=== PATIENT | female | born 1980 | race Caucasian/White ===

== ENCOUNTER 2020-10-04 16:18 | Emergency (ER) | payer OTHER ==
[2020-10-04 16:51] VITALS: TEMP 98.4
[2020-10-04] MEDS ORDERED: diphenhydrAMINE 50 MG/ML 1 ML VIAL IVP STA (16:55)
[2020-10-04] MEDS ORDERED: HYDROmorphone 0.5 MG/0.5 ML SYRINGE IVP STA ×2 (16:55→19:12)
[2020-10-04] MEDS ORDERED: METOCLOPRAMIDE 5 MG/ML 2 ML VIAL IVP STA (16:55)
--- NOTE | 2020-10-04 17:22 | ED ---
General Adult HPI - General Chief complaint: Headache Stated complaint: Headache/Blindness Time Seen by Provider: 10/04/20 16:38 Source: patient, EMS Mode of arrival: EMS Limitations: no limitations - History of Present Illness Initial comments: 40 year-old female patient with history significant for chiari malformation and pseudotumor cerebri presents to the emergency department for evaluation of headache and visual disturbance. Patient states that headache started 5 days ago. States that pain is at the base of her skull and behind her eyes. States earlier today she lost vision for about 15 minutes, states it went completely black and she was unable to see anything. States this is a new symptom for her. She reports occasional blurred vision. Nausea, light, and sound sensitivity. Denies any fever or chills. Denies any recent head injury. States she took her home medications which include lasix and toradol without difficulty. She was also given toradol in ambulance without relief. Does see Dr. Marinelli for neurology. Patient denies any recent rash, cough, shortness of breath, chest pain, abdominal pain, nausea, vomiting, diarrhea, constipation, back pain, hematuria, dysuria, urinary urgency, urinary frequency, or any other complaints. - Related Data Home Medications Medication Instructions Recorded Confirmed Cetirizine HCl [Zyrtec] 10 mg PO DAILY 10/04/20 10/04/20 Cyclobenzaprine [Flexeril] 10 mg PO BID 10/04/20 10/04/20 DULoxetine HCL [Cymbalta] 30 mg PO HS 10/04/20 10/04/20 Ergocalciferol (Vitamin D2) 1,250 mcg PO Q7D 10/04/20 10/04/20 [Drisdol (50,000 Iu)] Furosemide [Lasix] 20 mg PO BID 10/04/20 10/04/20 Hydrocortisone Cream 1 applic TOPICAL BID 10/04/20 10/04/20 [Hydrocortisone 2.5% Cream] Ketorolac [Toradol] 10 mg PO Q6HR PRN 10/04/20 10/04/20 Labetalol HCl 100 mg PO BID 10/04/20 10/04/20 Levothyroxine Sodium [Synthroid] 150 mcg PO DAILY 10/04/20 10/04/20 Ondansetron Odt [Zofran Odt] 4 mg PO BID PRN 10/04/20 10/04/20 Potassium Chloride ER [K-Dur 10] 10 meq PO DAILY 10/04/20 10/04/20 Triamcinolone 0.1% Cream [Kenalog 1 applic TOPICAL DAILY 10/04/20 10/04/20 0.1% Cream] traZODone HCL [Desyrel] 50 mg PO HS 10/04/20 10/04/20 Allergies Allergy/AdvReac Type Severity Reaction Status Date / Time acetaminophen Allergy Unknown Verified 10/04/20 17:25 [From Darvocet-N] acetazolamide Allergy Unknown Verified 10/04/20 17:25 [From Diamox Sequels] lisinopril Allergy Unknown Verified 10/04/20 17:25 propoxyphene Allergy Unknown Verified 10/04/20 17:25 [From Darvocet-N] vancomycin Allergy Unknown Verified 10/04/20 17:25 Review of Systems ROS Statement: Those systems with pertinent positive or pertinent negative responses have been documented in the HPI. ROS Other: All systems not noted in ROS Statement are negative. Past Medical History Past Medical History: Cancer, Thyroid Disorder Additional Past Medical History / Comment(s): Uterine CA, HTN, psuedo cerebri tumor, endometriosis, chiari malformation History of Any Multi-Drug Resistant Organisms: None Reported Past Surgical History: Hysterectomy Additional Past Surgical History / Comment(s): thyroidectomy, brain surgery, Past Psychological History: No Psychological Hx Reported Smoking Status: Never smoker Past Alcohol Use History: None Reported Past Drug Use History: None Reported General Exam Limitations: no limitations General appearance: alert, in no apparent distress, other (This is a well- developed, well-nourished adult female patient in no acute distress. Vital signs upon presentation are temperature 98.4F, pulse 85, respirations 18, blood pressure 132/79, pulse ox 97% on room air.) Eye exam: Present: normal appearance, PERRL, EOMI. Absent: scleral icterus, conjunctival injection, nystagmus, periorbital swelling ENT exam: Present: normal exam, normal oropharynx, mucous membranes moist Respiratory exam: Present: normal lung sounds bilaterally. Absent: respiratory distress, wheezes, rales, rhonchi, stridor Cardiovascular Exam: Present: regular rate, normal rhythm, normal heart sounds. Absent: systolic murmur, diastolic murmur, rubs, gallop, clicks GI/Abdominal exam: Present: soft, normal bowel sounds. Absent: distended, tenderness, guarding, rebound, rigid Neurological exam: Present: alert, oriented X3, CN II-XII intact Expanded Speech: Present: fluid speech Cranial nerves: EOM's Intact: Normal, Nystagmus: Normal Motor strength exam: RUE: 5, LUE: 5, RLE: 5, LLE: 5 Eye Response: (4) open spontaneously Motor Response: (6) obeys commands Verbal Response: (5) oriented Missy Total: 15 Psychiatric exam: Present: normal affect, normal mood Skin exam: Present: warm, dry, intact, normal color. Absent: rash Course Vital Signs 10/04/20 16:32 Temperature 98.4 F Pulse Rate 85 Respiratory 18 Rate Blood Pressure 132/79 O2 Sat by Pulse 97 Oximetry Medical Decision Making - Medical Decision Making 40-year-old female patient presents the emergency department today for evaluation of headache visual disturbance. Physical examination is unremarkable. She is neurologically intact and no focal deficits. Reports normal vision currently. She is given IV medications for pain and migraine. Patient does report some improvement. To be given Decadron hopefully to prevent return of migraine. She is instructed to follow-up with her neurologist for further evaluation as soon as possible. Return parameters were discussed in detail. She verbalizes understanding and agrees this plan. Case discussed with my attending Dr. Justice. - Lab Data Result diagrams: 10/04/20 18:08 10/04/20 18:08 Lab Results 10/04/20 10/04/20 Range/Units 18:08 18:08 WBC 11.0 H (3.8-10.6) k/uL RBC 4.73 (3.80-5.40) m/uL Hgb 14.3 (11.4-16.0) gm/dL Hct 42.7 (34.0-46.0) % MCV 90.3 (80.0-100.0) fL MCH 30.3 (25.0-35.0) pg MCHC 33.5 (31.0-37.0) g/dL RDW 13.2 (11.5-15.5) % Plt Count 307 (150-450) k/uL MPV 6.5 Neutrophils % 69 % Lymphocytes % 21 % Monocytes % 5 % Eosinophils % 2 % Basophils % 1 % Neutrophils # 7.6 (1.3-7.7) k/uL Lymphocytes # 2.3 (1.0-4.8) k/uL Monocytes # 0.5 (0-1.0) k/uL Eosinophils # 0.2 (0-0.7) k/uL Basophils # 0.1 (0-0.2) k/uL Sodium 137 (137-145) mmol/L Potassium 4.4 (3.5-5.1) mmol/L Chloride 102 (98-107) mmol/L Carbon Dioxide 25 (22-30) mmol/L Anion Gap 10 mmol/L BUN 11 (7-17) mg/dL Creatinine 0.82 (0.52-1.04) mg/dL Est GFR (CKD-EPI)AfAm >90 (>60 ml/min/1.73 sqM) Est GFR (CKD-EPI)NonAf >90 (>60 ml/min/1.73 sqM) Glucose 96 (74-99) mg/dL Calcium 9.0 (8.4-10.2) mg/dL Magnesium 2.3 (1.6-2.3) mg/dL Total Bilirubin 0.3 (0.2-1.3) mg/dL AST 22 (14-36) U/L ALT 19 (4-34) U/L Alkaline Phosphatase 90 (38-126) U/L Total Protein 7.7 (6.3-8.2) g/dL Albumin 4.3 (3.5-5.0) g/dL Disposition Clinical Impression: Migraine headache Disposition: HOME SELF-CARE Condition: Good Instructions (If sedation given, give patient instructions): Migraine Headache (ED) Additional Instructions: Rest. Increase fluids. Follow-up through primary care physician for recheck in 1-2 days. Return to the emergency department for any new, worsening, or concerning symptoms. Is patient prescribed a controlled substance at d/c from ED?: No Referrals: Rg Brice MD [Primary Care Provider] - 1-2 days
[2020-10-04 18:17] LABS: Basophils # (A) 0.1 k/uL (0-0.2); Basophils % (A) 1 %; Eosinophils # (A) 0.2 k/uL (0-0.7); Eosinophils % (A) 2 %; HCT 42.7 % (34.0-46.0); HGB 14.3 gm/dL (11.4-16.0); Lymphocytes # (A) 2.3 k/uL (1.0-4.8); Lymphocytes % (A) 21 %; MCH 30.3 pg (25.0-35.0); MCHC 33.5 g/dL (31.0-37.0); MCV 90.3 fL (80.0-100.0); Mean Platelet Volume 6.5; Monocytes # (A) 0.5 k/uL (0-1.0); Monocytes % (A) 5 %; Neutrophils # (A) 7.6 k/uL (1.3-7.7); Neutrophils % (A) 69 %; Platelet Count 307 k/uL (150-450); RBC 4.73 m/uL (3.80-5.40); RDW 13.2 % (11.5-15.5)
[2020-10-04 18:54] LABS: ALT 19 U/L (4-34); AST 22 U/L (14-36); African American GFR (CKD) >90 (>60 ml/min/1.73 sqM); Albumin 4.3 g/dL (3.5-5.0); Alkaline Phosphatase 90 U/L (38-126); Anion Gap 10 mmol/L; Blood Urea Nitrogen 11 mg/dL (7-17); Carbon Dioxide 25 mmol/L (22-30); Chloride 102 mmol/L (98-107); Glucose 96 mg/dL (74-99); Magnesium 2.3 mg/dL (1.6-2.3); Non-African American GFR(CKD) >90 (>60 ml/min/1.73 sqM); Potassium 4.4 mmol/L (3.5-5.1); Sodium 137 mmol/L (137-145); Total Bilirubin 0.3 mg/dL (0.2-1.3); Total Protein 7.7 g/dL (6.3-8.2)
[2020-10-04] MEDS ORDERED: DEXAMETHASONE SOD PHOSPHATE 10 MG/ML 1 ML VIAL IV STA (18:58)
[2020-10-04 20:22] VITALS: BP 122/82; PULSE 74; RESP 20
== END 2020-10-04 20:22 | disposition home or self-care (01) ==
LOC: EC 16:18
DX: G43.909 Migraine, unspecified, not intractable, without status migrainosus (principal); Z85.42 Personal history of malignant neoplasm of other parts of uterus; Z90.710 Acquired absence of both cervix and uterus
CPT/HCPCS: 36415; 80053; 83735; 85025; 96374; 96375; 96376; 99284

== ENCOUNTER 2021-10-25 22:49 | Emergency (ER) | payer OTHER ==
[2021-10-25 23:11] VITALS: TEMP 98.5
[2021-10-25] MEDS ORDERED: SODIUM CHLORIDE 0.9% 1,000 ML IV STA (23:21)
--- NOTE | 2021-10-25 23:33 | ED ---
Overdose HPI - General Source: patient, EMS Mode of arrival: EMS Limitations: no limitations - History of Present Illness MD Complaint: intentional overdose -: hour(s) Intent: suicide attempt, want to go to sleep How Overdose Was Discovered: called family/friend Context: Intentional Overdose: relationship problems Associated Symptoms: depression <Martin Justice - Last Filed: 10/26/21 03:29> <Brian Mello - Last Filed: 10/26/21 18:43> - General Chief Complaint: Overdose Stated Complaint: Overdose Time Seen by Provider: 10/25/21 22:54 - History of Present Illness Initial Comments: This patient is a 41-year-old woman who states that she was feeling overwhelmed with life. She states she is caring for family members, she is having relatio nship problems with her , and that tonight she took 18 Klonopin. She admits to having suicidal ideation and states she wanted the pain to end. (Martin Justice) - Related Data Home Medications Medication Instructions Recorded Confirmed Cyclobenzaprine [Flexeril] 10 mg PO TID PRN 10/04/20 10/26/21 Furosemide [Lasix] 20 mg PO DAILY 10/04/20 10/26/21 Labetalol HCl 100 mg PO BID 10/04/20 10/26/21 Potassium Chloride ER [K-Dur 10] 10 meq PO DAILY 10/04/20 10/26/21 DULoxetine HCL [Cymbalta] 120 mg PO DAILY 10/26/21 10/26/21 Gabapentin 600 mg PO TID 10/26/21 10/26/21 Levothyroxine Sodium [Synthroid] 175 mcg PO DAILY 10/26/21 10/26/21 Lisdexamfetamine Dimesylate 40 mg PO DAILY 10/26/21 10/26/21 [Vyvanse] clonazePAM [KlonoPIN] 1 mg PO DAILY 10/26/21 10/26/21 metFORMIN HCL 500 mg PO W/SUPPER 10/26/21 10/26/21 Allergies Allergy/AdvReac Type Severity Reaction Status Date / Time acetazolamide Allergy Unknown Verified 10/26/21 09:25 [From Diamox Sequels] lisinopril Allergy Unknown Verified 10/26/21 09:25 propoxyphene Allergy Unknown Verified 10/26/21 09:25 [From Darvocet-Bethanie] vancomycin Allergy Unknown Verified 10/26/21 09:25 Review of Systems ROS Other: All systems not noted in ROS Statement are negative. Constitutional: Denies: fever, chills Eyes: Denies: vision change Respiratory: Denies: cough, dyspnea Cardiovascular: Denies: chest pain, palpitations, edema, syncope Gastrointestinal: Denies: abdominal pain, vomiting, diarrhea Genitourinary: Denies: dysuria, hematuria Musculoskeletal: Denies: back pain Skin: Denies: rash Neurological: Denies: headache, weakness, numbness <ReshmaMartin - Last Filed: 10/26/21 03:29> ROS Other: All systems not noted in ROS Statement are negative. <FunmilayoBrian Bethanie - Last Filed: 10/26/21 18:43> ROS Statement: Those systems with pertinent positive or pertinent negative responses have been documented in the HPI. Past Medical History Past Medical History: Cancer, Thyroid Disorder Additional Past Medical History / Comment(s): Uterine CA, HTN, psuedo cerebri tumor, endometriosis, chiari malformation History of Any Multi-Drug Resistant Organisms: None Reported Past Surgical History: Hysterectomy Additional Past Surgical History / Comment(s): thyroidectomy, brain surgery, Past Psychological History: No Psychological Hx Reported Smoking Status: Never smoker Past Alcohol Use History: None Reported Past Drug Use History: None Reported <ReshmaMartin - Last Filed: 10/26/21 03:29> General Exam Limitations: no limitations General appearance: alert, in no apparent distress, other (Patient is mildly somnolent but arouses to voice.) Head exam: Present: atraumatic, normocephalic Eye exam: Present: normal appearance. Absent: scleral icterus, conjunctival injection ENT exam: Present: normal oropharynx Neck exam: Present: normal inspection, full ROM. Absent: tenderness Respiratory exam: Present: normal lung sounds bilaterally. Absent: respiratory distress, wheezes, rales, rhonchi, stridor Cardiovascular Exam: Present: normal rhythm, tachycardia (Rate 104 at my exam), normal heart sounds. Absent: systolic murmur, diastolic murmur, rubs, gallop GI/Abdominal exam: Present: soft. Absent: distended, tenderness, guarding, rebound, rigid, mass Extremities exam: Present: normal inspection, normal capillary refill. Absent: pedal edema, calf tenderness Back exam: Present: normal inspection. Absent: CVA tenderness (R), CVA tenderness (L) Neurological exam: Present: alert Skin exam: Present: warm, dry, intact, normal color. Absent: rash <Martin Justice - Last Filed: 10/26/21 03:29> Course Vital Signs 10/25/21 10/26/21 10/26/21 23:07 05:57 08:00 Temperature 98.5 F Pulse Rate 107 H 91 75 Respiratory 12 16 16 Rate Blood Pressure 138/95 157/83 136/80 O2 Sat by Pulse 97 95 Oximetry 10/26/21 10/26/21 10/26/21 09:00 12:46 14:00 Temperature Pulse Rate 74 94 76 Respiratory 16 14 16 Rate Blood Pressure 126/95 131/97 O2 Sat by Pulse 97 95 96 Oximetry Medical Decision Making - Lab Data Result diagrams: 10/25/21 23:21 10/25/21 23:21 <Martin Justice - Last Filed: 10/26/21 03:29> - Lab Data Result diagrams: 10/25/21 23:21 10/25/21 23:21 <Brian Mello - Last Filed: 10/26/21 18:43> - Medical Decision Making Patient had been medically cleared, evaluated by EPS and did sign a safety plan. She's given outpatient referral. Strict return parameters. Patient will be discharged at this time. (Brian Mello) - Lab Data Lab Results 10/25/21 10/25/21 10/26/21 Range/Units 23:21 23:21 13:00 WBC 9.4 (3.8-10.6) k/uL RBC 4.53 (3.80-5.40) m/uL Hgb 13.3 (11.4-16.0) gm/dL Hct 41.1 (34.0-46.0) % MCV 90.6 (80.0-100.0) fL MCH 29.4 (25.0-35.0) pg MCHC 32.5 (31.0-37.0) g/dL RDW 13.2 (11.5-15.5) % Plt Count 272 (150-450) k/uL MPV 6.9 Neutrophils % 59 % Lymphocytes % 27 % Monocytes % 6 % Eosinophils % 3 % Basophils % 2 % Neutrophils # 5.5 (1.3-7.7) k/uL Lymphocytes # 2.6 (1.0-4.8) k/uL Monocytes # 0.6 (0-1.0) k/uL Eosinophils # 0.3 (0-0.7) k/uL Basophils # 0.2 (0-0.2) k/uL Sodium 137 (137-145) mmol/L Potassium 4.2 (3.5-5.1) mmol/L Chloride 105 (98-107) mmol/L Carbon Dioxide 23 (22-30) mmol/L Anion Gap 9 mmol/L BUN 13 (7-17) mg/dL Creatinine 0.64 (0.52-1.04) mg/dL Est GFR (CKD-EPI)AfAm >90 (>60 ml/min/1.73 sqM) Est GFR (CKD-EPI)NonAf >90 (>60 ml/min/1.73 sqM) Glucose 113 H (74-99) mg/dL Calcium 8.5 (8.4-10.2) mg/dL Total Bilirubin 0.5 (0.2-1.3) mg/dL AST 30 (14-36) U/L ALT 20 (4-34) U/L Alkaline Phosphatase 51 (38-126) U/L Total Protein 7.2 (6.3-8.2) g/dL Albumin 4.1 (3.5-5.0) g/dL Urine HCG, Qual Not Detected (Not Detectd) Salicylates <1.0 mg/dL Urine Opiates Screen (NotDetected) Ur Oxycodone Screen (NotDetected) Urine Methadone Screen (NotDetected) Ur Propoxyphene Screen (NotDetected) Acetaminophen <10.0 ug/mL Ur Barbiturates Screen (NotDetected) U Tricyclic Antidepress (NotDetected) Ur Phencyclidine Scrn (NotDetected) Ur Amphetamines Screen (NotDetected) U Methamphetamines Scrn (NotDetected) U Benzodiazepines Scrn (NotDetected) Urine Cocaine Screen (NotDetected) U Marijuana (THC) Screen (NotDetected) Serum Alcohol <10 mg/dL 10/26/21 Range/Units 13:01 WBC (3.8-10.6) k/uL RBC (3.80-5.40) m/uL Hgb (11.4-16.0) gm/dL Hct (34.0-46.0) % MCV (80.0-100.0) fL MCH (25.0-35.0) pg MCHC (31.0-37.0) g/dL RDW (11.5-15.5) % Plt Count (150-450) k/uL MPV Neutrophils % % Lymphocytes % % Monocytes % % Eosinophils % % Basophils % % Neutrophils # (1.3-7.7) k/uL Lymphocytes # (1.0-4.8) k/uL Monocytes # (0-1.0) k/uL Eosinophils # (0-0.7) k/uL Basophils # (0-0.2) k/uL Sodium (137-145) mmol/L Potassium (3.5-5.1) mmol/L Chloride (98-107) mmol/L Carbon Dioxide (22-30) mmol/L Anion Gap mmol/L BUN (7-17) mg/dL Creatinine (0.52-1.04) mg/dL Est GFR (CKD-EPI)AfAm (>60 ml/min/1.73 sqM) Est GFR (CKD-EPI)NonAf (>60 ml/min/1.73 sqM) Glucose (74-99) mg/dL Calcium (8.4-10.2) mg/dL Total Bilirubin (0.2-1.3) mg/dL AST (14-36) U/L ALT (4-34) U/L Alkaline Phosphatase (38-126) U/L Total Protein (6.3-8.2) g/dL Albumin (3.5-5.0) g/dL Urine HCG, Qual (Not Detectd) Salicylates mg/dL Urine Opiates Screen Not Detected (NotDetected) Ur Oxycodone Screen Not Detected (NotDetected) Urine Methadone Screen Not Detected (NotDetected) Ur Propoxyphene Screen Not Detected (NotDetected) Acetaminophen ug/mL Ur Barbiturates Screen Not Detected (NotDetected) U Tricyclic Antidepress Detected H (NotDetected) Ur Phencyclidine Scrn Not Detected (NotDetected) Ur Amphetamines Screen Detected H (NotDetected) U Methamphetamines Scrn Not Detected (NotDetected) U Benzodiazepines Scrn Not Detected (NotDetected) Urine Cocaine Screen Not Detected (NotDetected) U Marijuana (THC) Screen Not Detected (NotDetected) Serum Alcohol mg/dL Disposition Is patient prescribed a controlled substance at d/c from ED?: No Time of Disposition: 03:30 <Martin Justice - Last Filed: 10/26/21 03:29> Is patient prescribed a controlled substance at d/c from ED?: No Time of Disposition: 18:43 <Brian Mello - Last Filed: 10/26/21 18:43> Clinical Impression: Overdose, Depression Disposition: HOME SELF-CARE Condition: Fair Instructions (If sedation given, give patient instructions): Adult Overdose (ED), Depression (ED) Referrals: Rg Brice MD [Primary Care Provider] - 1-2 days
[2021-10-26 00:28] LABS: ALT 20 U/L (4-34); AST 30 U/L (14-36); Acetaminophen <10.0 ug/mL; African American GFR (CKD) >90 (>60 ml/min/1.73 sqM); Albumin 4.1 g/dL (3.5-5.0); Alcohol <10 mg/dL; Alkaline Phosphatase 51 U/L (38-126); Anion Gap 9 mmol/L; Blood Urea Nitrogen 13 mg/dL (7-17); Calcium 8.5 mg/dL (8.4-10.2); Carbon Dioxide 23 mmol/L (22-30); Chloride 105 mmol/L (98-107); Glucose 113 mg/dL (74-99); Non-African American GFR(CKD) >90 (>60 ml/min/1.73 sqM); Salicylate <1.0 mg/dL; Sodium 137 mmol/L (137-145); Total Bilirubin 0.5 mg/dL (0.2-1.3); Total Protein 7.2 g/dL (6.3-8.2)
[2021-10-26 00:35] LABS: Basophils # (A) 0.2 k/uL (0-0.2); Basophils % (A) 2 %; Eosinophils # (A) 0.3 k/uL (0-0.7); Eosinophils % (A) 3 %; HCT 41.1 % (34.0-46.0); HGB 13.3 gm/dL (11.4-16.0); Lymphocytes # (A) 2.6 k/uL (1.0-4.8); Lymphocytes % (A) 27 %; MCH 29.4 pg (25.0-35.0); MCHC 32.5 g/dL (31.0-37.0); MCV 90.6 fL (80.0-100.0); Mean Platelet Volume 6.9; Monocytes # (A) 0.6 k/uL (0-1.0); Monocytes % (A) 6 %; Neutrophils # (A) 5.5 k/uL (1.3-7.7); Neutrophils % (A) 59 %; Platelet Count 272 k/uL (150-450); RBC 4.53 m/uL (3.80-5.40); RDW 13.2 % (11.5-15.5); WBC 9.4 k/uL (3.8-10.6)
[2021-10-26 00:59] LABS: Potassium 4.2 mmol/L (3.5-5.1)
[2021-10-26] MEDS ORDERED: ACETAMINOPHEN TAB 325 MG TAB PO STA (13:17)
[2021-10-26 13:34] LABS: Amphetamine Screen,Urine Detected (NotDetected); Barbiturate Screen,Urine Not Detected (NotDetected); Benzodiazepines Screen,Urine Not Detected (NotDetected); Cocaine Screen,Urine Not Detected (NotDetected); Methadone Screen, Urine Not Detected (NotDetected); Opiate Screen,Urine Not Detected (NotDetected); Oxycodone Screen, Urine Not Detected (NotDetected); Phencyclidine Screen,Urine Not Detected (NotDetected); Tricyclic Antidepressant,Urine Detected (NotDetected); Urn Cannabinoid Scrn Not Detected (NotDetected)
[2021-10-26 14:20] VITALS: BP 131/97; PULSE 76; RESP 16
== END 2021-10-26 18:58 | disposition home or self-care (01) ==
LOC: EC 22:49
DX: T42.4X2A Poisoning by benzodiazepines, intentional self-harm, initial encounter (principal); F32.A Depression, unspecified; I10 Essential (primary) hypertension; E07.9 Disorder of thyroid, unspecified; Z88.6 Allergy status to analgesic agent; Z88.8 Allergy status to other drugs, medicaments and biological substances; Z88.1 Allergy status to other antibiotic agents; Z79.899 Other long term (current) drug therapy; Z79.890 Hormone replacement therapy
CPT/HCPCS: 82075; 36415; 93005; 80053; 85025; 81025; 80306; 80143; 80179; 99285; 96360; 96361; G0480; 80320